=== PATIENT | female | born 1990 | race African-American/Black ===

== ENCOUNTER 2019-01-08 07:01 | Emergency (ER) | payer OTHER ==
[~2019-01-08] VITALS: Ht 172.7 cm; Wt 78.5 kg
--- NOTE | 2019-01-08 07:20 | NUR ---
BIBS FOR C/O COUGH, CONGESTION AND H/A.
[2019-01-08] MEDS ORDERED: AZITHROMYCIN 250 MG TABLET PO ONE (07:30)
[2019-01-08] MEDS ORDERED: AZITHROMYCIN 250 MG TABLET ONE (07:31)
[2019-01-08 07:51] VITALS: BP 120/84
--- NOTE | 2019-01-08 07:51 | NUR ---
Patient discharged to home in stable condition. Written and verbal after care instructions given. Patient verbalizes understanding of instruction.
[2019-01-08] MEDS ORDERED: IBUPROFEN 600 MG TABLET PO ONE (08:00)
== END 2019-01-08 07:52 | disposition home or self-care (01) ==
LOC: ER 07:01
DX: J01.90 Acute sinusitis, unspecified (principal)
CPT/HCPCS: 84703-TC